=== PATIENT | female | born 1960 ===

== ENCOUNTER 2018-06-19 11:56 | Inpatient (IN) ==
[2018-06-19] MEDS ORDERED: BISACODYL 5 MG TABLET PO PRN (14:15)
[2018-06-19] MEDS ORDERED: ONDANSETRON 4 MG/2 ML VIAL IV PRN (14:15)
[2018-06-19] MEDS ORDERED: PROMETHAZINE 25 MG/1 ML VIAL IM PRN (14:15)
[2018-06-19] MEDS ORDERED: CLINDAMYCIN INJ 300 MG in PREMIX 1 EACH IV SCH (14:30)
[2018-06-19 15:03] LABS: Basophils # 0.1 10*3/uL (0.0-0.2); Basophils % 0.3 % (0.0-0.8); Eosinophils % 2.7 % (0.00-10.9); Hematocrit 29.9 VOL% (35.7-47.0); Hemoglobin 9.3 GM/DL (12.0-16.0); Immature Granulocytes % 4.4 %; Immature Granulocytes Absolute 1.59 #; Lymphocytes # 1.7 10*3/uL (1.4-4.0); Lymphocytes % 4.6 % (21.3-54.2); Mean Corpuscular HGB Conc 31.1 GM/DL (32-36); Mean Corpuscular Hemoglobin 30 PG (27-34); Mean Corpuscular Volume 96.8 FL (87-102); Mean Platelet Volume 9.1 FL (9.6-12.0); Monocytes # 2.1 10*3/uL (0.11-0.8); Monocytes % 5.8 % (1.7-12.7); Neutrophils # 29.6 10*3/uL (1.4-7.4); Neutrophils % 82.2 % (38.7-73.9); Platelet Count 346 T/CUMM (130-400); Red Blood Count 3.09 MC/CUMM (3.8-5.5); Red Cell Distribution Width 14.7 % (9.3-17.3)
[2018-06-19 15:29] LABS: Albumin 1.6 G/DL (3.4-5.0); Bilirubin,Total 0.4 MG/DL (0.2-1.0); Calcium 8.1 MG/DL (8.5-10.1); Osmolality,Calculated 269.1 MOS/KG (273-304); Potassium 2.8 MMOL/L (3.5-5.1); Total Protein 6.9 G/DL (6.4-8.3)
[2018-06-19] MEDS ORDERED: POTASSIUM CHLORIDE RIDER 10 MEQ in PREMIX 1 EACH IV PRN (15:38)
[2018-06-19] MEDS ORDERED: MAGNESIUM SULF RIDER 4 GM in PREMIX 1 EACH IV ONE (15:39)
[2018-06-19] MEDS: SODIUM CHLORIDE 0.9% 1,000 ML IV SCH (17:13)
[2018-06-19] MEDS: PIPERACILLIN/TAZOBACTAM 3,375 MG in SODIUM CHLORIDE 0.9% 100 ML IV SCH (17:15)
[2018-06-19] MEDS: LACTOBACILLUS ACIDOPHILUS/BULGARICUS CAPLET PO SCH (17:15)
[2018-06-19] MEDS: PANTOPRAZOLE 40 MG TABLET PO SCH (17:15)
[2018-06-19 17:20] LABS: Polychromasia Few
[2018-06-19 17:22] LABS: Hypochromasia Slight; Macrocytosis Slight; Platelet Estimate Adequate
[2018-06-19] MEDS: POTASSIUM CHLORIDE 20 MEQ TABLET PO PRN ×3 (17:24→21:21)
[2018-06-19] MEDS: HYDROmorphone 2 MG/1 ML VIAL IV PRN (19:02)
[2018-06-19] MEDS: AMITRIPTYLINE 100 MG TABLET PO SCH (21:16)
[2018-06-19] MEDS: VANCOMYCIN INJ 1,500 MG in SODIUM CHLORIDE 0.9% 500 ML IV SCH (21:16)
[2018-06-20] MEDS: POTASSIUM CHLORIDE 20 MEQ TABLET PO PRN (00:44)
[2018-06-20] MEDS: PIPERACILLIN/TAZOBACTAM 3,375 MG in SODIUM CHLORIDE 0.9% 100 ML IV SCH ×2 (02:38→15:12)
[2018-06-20] MEDS: HYDROmorphone 2 MG/1 ML VIAL IV PRN ×6 (04:54→13:25)
[2018-06-20 06:16] LABS: Basophils # 0.1 10*3/uL (0.0-0.2); Basophils % 0.3 % (0.0-0.8); Eosinophils # 0.9 10*3/uL (0.0-0.87); Eosinophils % 3.1 % (0.00-10.9); Hematocrit 26.9 VOL% (35.7-47.0); Hemoglobin 8.9 GM/DL (12.0-16.0); Immature Granulocytes % 3.4 %; Immature Granulocytes Absolute 1.01 #; Lymphocytes # 2.5 10*3/uL (1.4-4.0); Lymphocytes % 8.3 % (21.3-54.2); Mean Corpuscular HGB Conc 33.1 GM/DL (32-36); Mean Corpuscular Hemoglobin 31 PG (27-34); Mean Corpuscular Volume 93.7 FL (87-102); Mean Platelet Volume 9.3 FL (9.6-12.0); Monocytes # 2.4 10*3/uL (0.11-0.8); Monocytes % 8.1 % (1.7-12.7); Neutrophils # 22.7 10*3/uL (1.4-7.4); Neutrophils % 76.8 % (38.7-73.9); Platelet Count 386 T/CUMM (130-400); Red Blood Count 2.87 MC/CUMM (3.8-5.5); Red Cell Distribution Width 14.8 % (9.3-17.3); White Blood Count 29.5 T/CUMM (4-12)
[2018-06-20 06:41] LABS: Band Neutrophils 9 % (0-10); Eosinophils 1 % (0-10); Lymphocytes 7 % (20-55); Platelet Estimate Normal; Segmented Neutrophils 76 % (50-85); Total Cells Counted 100
[2018-06-20 06:42] LABS: Anisocytosis Slight
[2018-06-20 06:49] LABS: Albumin 1.5 G/DL (3.4-5.0); Bilirubin,Total 0.4 MG/DL (0.2-1.0); Calcium 7.9 MG/DL (8.5-10.1); Total Protein 6.4 G/DL (6.4-8.3)
[2018-06-20 07:02] LABS: Risk Ratio 2.59
[2018-06-20 07:26] LABS: Eosinophils 3 % (0-10); Lymphocytes 5 % (20-55); Segmented Neutrophils 85 % (50-85)
[2018-06-20 07:27] LABS: Total Cells Counted 100
[2018-06-20] MEDS ORDERED: DEXTROSE 50% 25 GM/50 ML VIAL IV PRN (08:34)
[2018-06-20] MEDS ORDERED: GLUCAGON 1 MG VIAL IM PRN (08:34)
[2018-06-20] MEDS: LISINOPRIL 10 MG TABLET PO SCH (08:53)
[2018-06-20] MEDS: PANTOPRAZOLE 40 MG TABLET PO SCH (08:53)
[2018-06-20] MEDS: VANCOMYCIN INJ 1,500 MG in SODIUM CHLORIDE 0.9% 500 ML IV SCH ×2 (08:54→21:28)
[2018-06-20] MEDS ORDERED: LIDOCAINE 1%/EPI INJ 20 ML VIAL ONE (11:27)
[2018-06-20] MEDS ORDERED: MUPIROCIN 2% OINT 22 GM TUBE TOP ONE (12:27)
[2018-06-20] MEDS ORDERED: PROPOFOL 200 MG/20 ML VIAL IV ONE (13:04)
[2018-06-20] MEDS ORDERED: fentaNYL 100 MCG/2 ML VIAL ONE (13:05)
[2018-06-20] MEDS ORDERED: MIDAZOLAM 2 MG/2 ML VIAL ONE (13:05)
[2018-06-20] MEDS ORDERED: KETOROLAC 30 MG/1 ML VIAL ONE (13:06)
[2018-06-20] MEDS ORDERED: SUCCINYLCHOLINE 200 MG/10 ML VIAL ONE (13:06)
[2018-06-20] MEDS ORDERED: ONDANSETRON 4 MG/2 ML VIAL ONE ×2 (13:06→13:08)
[2018-06-20] MEDS ORDERED: DEXAMETHASONE 10 MG/1 ML VIAL ONE (13:06)
[2018-06-20] MEDS ORDERED: ACETAMINOPHEN 1,000 MG/100 ML VIAL IV ONE (13:06)
[2018-06-20] MEDS ORDERED: HYDROmorphone 2 MG/1 ML VIAL ONE (13:08)
[2018-06-20] MEDS ORDERED: ONDANSETRON 4 MG/2 ML VIAL IV PRN (13:08)
[2018-06-20] MEDS: LACTOBACILLUS ACIDOPHILUS/BULGARICUS CAPLET PO SCH (13:20)
[2018-06-20] MEDS: ZONISAMIDE 100 MG CAPSULE PO SCH ×2 (13:20→20:44)
[2018-06-20] MEDS ORDERED: FAT EMULSION 20% 250 ML IV SCH (14:00)
[2018-06-20] MEDS: INSULIN REGULAR 100 UNIT/ML SUBCUT SCH ×3 (15:13→20:07)
[2018-06-20] MEDS ORDERED: MULTIVITAMIN INJ 10 ML, TRACE ELEMENTS (5) 1 ML in AMINO ACIDS/DEXT/LYTES 4.25-5% 2,000 ML IV SCH (17:00)
[2018-06-20] MEDS: AMITRIPTYLINE 100 MG TABLET PO SCH (20:44)
[2018-06-20] MEDS: SODIUM CHLORIDE 0.9% 1,000 ML IV SCH (20:44)
[2018-06-21] MEDS: INSULIN REGULAR 100 UNIT/ML SUBCUT SCH ×4 (01:07→18:12)
[2018-06-21] MEDS: PIPERACILLIN/TAZOBACTAM 3,375 MG in SODIUM CHLORIDE 0.9% 100 ML IV SCH ×2 (01:08→12:44)
[2018-06-21 06:08] LABS: Basophils # 0.1 10*3/uL (0.0-0.2); Basophils % 0.2 % (0.0-0.8); Hematocrit 25.3 VOL% (35.7-47.0); Hemoglobin 7.9 GM/DL (12.0-16.0); Immature Granulocytes % 2.9 %; Immature Granulocytes Absolute 0.94 #; Lymphocytes # 1.1 10*3/uL (1.4-4.0); Lymphocytes % 3.5 % (21.3-54.2); Mean Corpuscular HGB Conc 31.2 GM/DL (32-36); Mean Corpuscular Hemoglobin 30 PG (27-34); Mean Corpuscular Volume 96.6 FL (87-102); Mean Platelet Volume 9.5 FL (9.6-12.0); Monocytes # 1.6 10*3/uL (0.11-0.8); Monocytes % 4.8 % (1.7-12.7); NRBC # 0.02 10*3/uL; Neutrophils # 28.9 10*3/uL (1.4-7.4); Neutrophils % 88.6 % (38.7-73.9); Platelet Count 383 T/CUMM (130-400); Red Blood Count 2.62 MC/CUMM (3.8-5.5); Red Cell Distribution Width 14.6 % (9.3-17.3); White Blood Count 32.7 T/CUMM (4-12)
[2018-06-21] MEDS: HYDROmorphone 2 MG/1 ML VIAL IV PRN (06:41)
[2018-06-21 06:43] LABS: Prealbumin 6.1 MG/DL (20-40)
[2018-06-21] MEDS: SODIUM CHLORIDE 0.9% 1,000 ML IV SCH ×3 (06:49→18:55)
[2018-06-21 06:53] LABS: Albumin 1.4 G/DL (3.4-5.0); Bilirubin,Total 0.6 MG/DL (0.2-1.0); Potassium 4.6 MMOL/L (3.5-5.1)
[2018-06-21 06:58] LABS: Anisocytosis 1+; Band Neutrophils 3 % (0-10); Lymphocytes 6 % (20-55); Macrocytosis 2+; Platelet Estimate Normal; Polychromasia Slight; Segmented Neutrophils 85 % (50-85); Total Cells Counted 100
[2018-06-21] MEDS ORDERED: MUPIROCIN 2% OINT 22 GM TUBE TOP ONE (08:34)
[2018-06-21] MEDS ORDERED: LIDOCAINE 1%/EPI INJ 20 ML VIAL ONE (08:34)
[2018-06-21] MEDS ORDERED: SODIUM CHLORIDE 0.9% 1,000 ML IV PRN (08:39)
[2018-06-21 08:50] LABS: Sedimentation Rate-Westergren 131 MM/HR (0-30)
[2018-06-21] MEDS ORDERED: SEVOFLURANE 1 UNIT/15 MINUTE INH ONE (10:31)
[2018-06-21] MEDS ORDERED: fentaNYL 100 MCG/2 ML VIAL ONE (10:33)
[2018-06-21] MEDS ORDERED: ONDANSETRON 4 MG/2 ML VIAL ONE (10:33)
[2018-06-21] MEDS ORDERED: PROPOFOL 200 MG/20 ML VIAL IV ONE (10:33)
[2018-06-21] MEDS ORDERED: MIDAZOLAM 2 MG/2 ML VIAL ONE (10:33)
[2018-06-21] MEDS ORDERED: SUCCINYLCHOLINE 200 MG/10 ML VIAL ONE (10:33)
[2018-06-21] MEDS: LISINOPRIL 10 MG TABLET PO SCH (11:18)
[2018-06-21] MEDS: ZONISAMIDE 100 MG CAPSULE PO SCH ×2 (11:28→20:36)
[2018-06-21] MEDS: PANTOPRAZOLE 40 MG TABLET PO SCH (11:28)
[2018-06-21] MEDS: LACTOBACILLUS ACIDOPHILUS/BULGARICUS CAPLET PO SCH (11:28)
[2018-06-21] MEDS: VANCOMYCIN INJ 1,500 MG in SODIUM CHLORIDE 0.9% 500 ML IV SCH (12:44)
[2018-06-21] MEDS: CLINDAMYCIN INJ 300 MG in PREMIX 1 EACH IV SCH (18:51)
[2018-06-21] MEDS: SULFAMETHOX/TRIMETHOPRIM 800-160 MG TABLET PO SCH (20:35)
[2018-06-21] MEDS: AMITRIPTYLINE 100 MG TABLET PO SCH (20:36)
[2018-06-22] MEDS: INSULIN REGULAR 100 UNIT/ML SUBCUT SCH ×3 (00:01→11:38)
[2018-06-22] MEDS: CLINDAMYCIN INJ 300 MG in PREMIX 1 EACH IV SCH ×4 (03:20→18:07)
[2018-06-22 03:59] LABS: Basophils # 0.1 10*3/uL (0.0-0.2); Basophils % 0.3 % (0.0-0.8); Eosinophils # 0.3 10*3/uL (0.0-0.87); Eosinophils % 1.3 % (0.00-10.9); Hematocrit 32.3 VOL% (35.7-47.0); Hemoglobin 9.8 GM/DL (12.0-16.0); Immature Granulocytes % 2.6 %; Immature Granulocytes Absolute 0.56 #; Lymphocytes # 2.2 10*3/uL (1.4-4.0); Mean Corpuscular HGB Conc 30.3 GM/DL (32-36); Mean Corpuscular Hemoglobin 29 PG (27-34); Mean Corpuscular Volume 95.8 FL (87-102); Mean Platelet Volume 9.2 FL (9.6-12.0); Monocytes # 1.6 10*3/uL (0.11-0.8); Monocytes % 7.3 % (1.7-12.7); Neutrophils # 16.9 10*3/uL (1.4-7.4); Neutrophils % 78.5 % (38.7-73.9); Platelet Count 383 T/CUMM (130-400); Red Blood Count 3.37 MC/CUMM (3.8-5.5); Red Cell Distribution Width 16.8 % (9.3-17.3); White Blood Count 21.6 T/CUMM (4-12)
[2018-06-22 04:37] LABS: Eosinophils 4 % (0-10); Lymphocytes 7 % (20-55); Segmented Neutrophils 83 % (50-85)
[2018-06-22 04:39] LABS: Burr Cells 1+; Hypochromasia Slight; Platelet Estimate Normal; Polychromasia Few; Total Cells Counted 100
[2018-06-22 04:40] LABS: Giant Platelets Few
[2018-06-22 04:41] LABS: Anisocytosis 1+; Macrocytosis 1+
[2018-06-22] MEDS: PANTOPRAZOLE 40 MG TABLET PO SCH (08:52)
[2018-06-22] MEDS: LACTOBACILLUS ACIDOPHILUS/BULGARICUS CAPLET PO SCH (08:52)
[2018-06-22] MEDS: ZONISAMIDE 100 MG CAPSULE PO SCH ×2 (08:52→20:48)
[2018-06-22] MEDS: LISINOPRIL 10 MG TABLET PO SCH (08:53)
[2018-06-22] MEDS: SULFAMETHOX/TRIMETHOPRIM 800-160 MG TABLET PO SCH (08:54)
[2018-06-22] MEDS: CHOLECALCIFEROL 1,000 UNIT TABLET PO SCH (08:57)
[2018-06-22] MEDS ORDERED: ERGOCALCIFEROL 50,000 UNIT CAPSULE PO SCH (09:00)
[2018-06-22 09:28] LABS: Calcium 7.6 MG/DL (8.5-10.1); Osmolality,Calculated 280.7 MOS/KG (273-304); Potassium 4.6 MMOL/L (3.5-5.1)
[2018-06-22] MEDS: SODIUM CHLORIDE 0.9% 1,000 ML IV SCH (11:39)
[2018-06-22] MEDS: DOXYCYCLINE HYCLATE 100 MG CAPSULE PO SCH ×2 (11:44→20:48)
[2018-06-22] MEDS: TAMSULOSIN 0.4 MG CAPSULE PO SCH (20:49)
[2018-06-22] MEDS: AMITRIPTYLINE 100 MG TABLET PO SCH (20:49)
[2018-06-23] MEDS: CLINDAMYCIN INJ 300 MG in PREMIX 1 EACH IV SCH ×3 (03:40→18:54)
[2018-06-23 07:45] LABS: Basophils # 0.1 10*3/uL (0.0-0.2); Basophils % 0.6 % (0.0-0.8); Eosinophils # 0.8 10*3/uL (0.0-0.87); Eosinophils % 5.3 % (0.00-10.9); Hematocrit 31.5 VOL% (35.7-47.0); Hemoglobin 9.6 GM/DL (12.0-16.0); Immature Granulocytes % 2.3 %; Immature Granulocytes Absolute 0.33 #; Lymphocytes # 1.8 10*3/uL (1.4-4.0); Lymphocytes % 12.2 % (21.3-54.2); Mean Corpuscular HGB Conc 30.5 GM/DL (32-36); Mean Corpuscular Hemoglobin 29 PG (27-34); Mean Corpuscular Volume 96.3 FL (87-102); Mean Platelet Volume 9.2 FL (9.6-12.0); Monocytes # 1.6 10*3/uL (0.11-0.8); Monocytes % 11.3 % (1.7-12.7); Neutrophils # 9.9 10*3/uL (1.4-7.4); Neutrophils % 68.3 % (38.7-73.9); Platelet Count 411 T/CUMM (130-400); Red Blood Count 3.27 MC/CUMM (3.8-5.5); White Blood Count 14.4 T/CUMM (4-12)
[2018-06-23] MEDS: CHOLECALCIFEROL 1,000 UNIT TABLET PO SCH (08:48)
[2018-06-23] MEDS: LACTOBACILLUS ACIDOPHILUS/BULGARICUS CAPLET PO SCH (08:49)
[2018-06-23] MEDS: PANTOPRAZOLE 40 MG TABLET PO SCH (08:49)
[2018-06-23] MEDS: LISINOPRIL 10 MG TABLET PO SCH (08:49)
[2018-06-23] MEDS: ZONISAMIDE 100 MG CAPSULE PO SCH ×2 (08:49→20:27)
[2018-06-23] MEDS: DOXYCYCLINE HYCLATE 100 MG CAPSULE PO SCH ×2 (08:50→20:27)
[2018-06-23] MEDS: SODIUM CHLORIDE 0.9% 1,000 ML IV SCH ×2 (09:13→16:46)
[2018-06-23 11:17] LABS: Alanine Aminotransferase 16 U/L (13-56); Albumin 1.8 G/DL (3.4-5.0); Alkaline Phosphatase 137 U/L (45-117); Aspartate Amino Transferase 31 U/L (0-37); Bilirubin,Total < 0.39 MG/DL (0.2-1.0); Blood Urea Nitrogen 31 MG/DL (7-18); Calcium 7.9 MG/DL (8.5-10.1); Glucose 91 MG/DL (74-106); Osmolality,Calculated 283.5 MOS/KG (273-304); Sodium 139 MMOL/L (136-145); Total Protein 5.8 G/DL (6.4-8.3)
[2018-06-23] MEDS: AMITRIPTYLINE 100 MG TABLET PO SCH (20:27)
[2018-06-23] MEDS: TAMSULOSIN 0.4 MG CAPSULE PO SCH (20:27)
[2018-06-24] MEDS: CLINDAMYCIN INJ 300 MG in PREMIX 1 EACH IV SCH ×3 (03:23→19:26)
[2018-06-24] MEDS: SODIUM CHLORIDE 0.9% 1,000 ML IV SCH (03:28)
[2018-06-24 07:21] LABS: Basophils # 0.1 10*3/uL (0.0-0.2); Basophils % 0.4 % (0.0-0.8); Eosinophils # 0.7 10*3/uL (0.0-0.87); Eosinophils % 5.4 % (0.00-10.9); Hemoglobin 9.1 GM/DL (12.0-16.0); Immature Granulocytes % 1.7 %; Lymphocytes # 1.5 10*3/uL (1.4-4.0); Lymphocytes % 12.8 % (21.3-54.2); Mean Corpuscular HGB Conc 30.3 GM/DL (32-36); Mean Corpuscular Hemoglobin 29 PG (27-34); Mean Corpuscular Volume 95.8 FL (87-102); Mean Platelet Volume 9.1 FL (9.6-12.0); Monocytes # 1.3 10*3/uL (0.11-0.8); Monocytes % 10.8 % (1.7-12.7); Neutrophils # 8.2 10*3/uL (1.4-7.4); Neutrophils % 68.9 % (38.7-73.9); Platelet Count 395 T/CUMM (130-400); Red Blood Count 3.13 MC/CUMM (3.8-5.5); Red Cell Distribution Width 16.6 % (9.3-17.3); White Blood Count 11.9 T/CUMM (4-12)
[2018-06-24 07:54] LABS: Albumin 1.6 G/DL (3.4-5.0); Bilirubin,Total 0.6 MG/DL (0.2-1.0); Calcium 8.2 MG/DL (8.5-10.1); Calcium 8.3 MG/DL (8.5-10.1); Osmolality,Calculated 287.3 MOS/KG (273-304); Potassium 4.9 MMOL/L (3.5-5.1)
[2018-06-24] MEDS: DOXYCYCLINE HYCLATE 100 MG CAPSULE PO SCH (08:50)
[2018-06-24] MEDS: CHOLECALCIFEROL 1,000 UNIT TABLET PO SCH (08:51)
[2018-06-24] MEDS: LISINOPRIL 10 MG TABLET PO SCH (08:51)
[2018-06-24] MEDS: LACTOBACILLUS ACIDOPHILUS/BULGARICUS CAPLET PO SCH (08:51)
[2018-06-24] MEDS: ZONISAMIDE 100 MG CAPSULE PO SCH (08:51)
[2018-06-24] MEDS ORDERED: ZALEPLON 5 MG CAPSULE PO PRN (13:32)
[2018-06-24] MEDS ORDERED: LISINOPRIL 10 MG TABLET PO SCH (14:00)
[2018-06-24] MEDS ORDERED: ZONISAMIDE 100 MG CAPSULE PO SCH (14:00)
[2018-06-24] MEDS ORDERED: SODIUM HYPOCHLORITE 0.25% IRRIG 473 ML BOTTLE TOP SCH (15:00)
[2018-06-24] MEDS ORDERED: hydrALAZINE 10 MG TABLET PO SCH (15:00)
[2018-06-24 16:24] VITALS: BP 150/79
[2018-06-24 19:36] LABS: Lymphocytes,Synovial Fluid 2 %; Neutrophils,Synovial Fluid 94 %
[2018-06-24] MEDS ORDERED: AMITRIPTYLINE 100 MG TABLET PO SCH (21:00)
[2018-06-25] MEDS ORDERED: ZONISAMIDE 100 MG CAPSULE PO SCH (09:00)
== END 2018-06-24 19:45 | DRG 571 ==
LOC: N.5E 14:08
PROVIDERS: ADMIT Otolaryngology; ATTEND Otolaryngology